=== PATIENT | female | born 1995 | race Caucasian/White ===

== ENCOUNTER 2021-01-11 14:47 | Emergency (ER) | payer OTHER ==
[~2021-01-11] VITALS: Ht 165.1 cm; Wt 88.9 kg
[2021-01-11 14:50] VITALS: BP_SYST 122
[2021-01-11] MEDS ORDERED: ALBU8.5H8 INH (17:25)
[2021-01-11] MEDS ORDERED: GUAI-723 PO (17:25)
== END 2021-01-11 17:39 | disposition home or self-care (01) ==
LOC: SED 14:47
DX: J45.909 Unspecified asthma, uncomplicated (principal); Z79.899 Other long term (current) drug therapy
CPT/HCPCS: 71046-TC; 93005; 99283